=== PATIENT | female | born 2000 | race Caucasian/White ===

== ENCOUNTER 2020-04-26 05:50 | Day surgery (SDC) | payer OTHER, SELFPAY ==
[2020-04-22 13:51] LABS: HCG,QUAL RESULT NEGATIVE (NEGATIVE)
[~2020-04-26] VITALS: Ht 177.8 cm; Wt 160.6 kg
[2020-04-26 06:21] LABS: HCG,QUAL RESULT NEGATIVE (NEGATIVE)
[2020-04-26] MEDS ORDERED: NS 1000 ML IV.SOLN IV ONE (07:37)
[2020-04-26] MEDS ORDERED: fentaNYL CITRATE 250 MCG/5 ML AMP IV ONE (07:37)
[2020-04-26] MEDS ORDERED: NEOSTIGMINE METHYLSULFATE 1 MG/ML, 10 ML VIAL IVP ONE (07:37)
[2020-04-26] MEDS ORDERED: ROCURONIUM BROMIDE 10 MG/ML (ZEMURON) IV ONE (07:37)
[2020-04-26] MEDS ORDERED: METOCLOPRAMIDE HCL 10 MG/2 ML VIAL IVP ONE (07:37)
[2020-04-26] MEDS ORDERED: WATER FOR IRRIGATION,STERILE 1,000 ML IRRIG.SOLN IR ONE (07:37)
[2020-04-26] MEDS ORDERED: MIDAZOLAM HCL 5 MG/5 ML VIAL IVP ONE (07:37)
[2020-04-26] MEDS ORDERED: ONDANSETRON HCL 4 MG/2 ML VIAL IVP ONE (07:37)
[2020-04-26] MEDS ORDERED: LR 1,000 ML IV.SOLN IV ONE (07:37)
[2020-04-26] MEDS ORDERED: NS IRRIG SOLN 1000 ML IR ONE (07:37)
[2020-04-26] MEDS ORDERED: SEVOFLURANE 15 MIN GAS INH ONE (07:37)
[2020-04-26] MEDS ORDERED: GLYCOPYRROLATE 0.2 MG/ML VIAL IJ ONE (07:37)
[2020-04-26] MEDS ORDERED: LIDOCAINE 1% 10 MG/ML, 20 ML MDV INJ ONE (07:37)
[2020-04-26] MEDS ORDERED: PROPOFOL 200MG/ 20ML VIAL (DIPRIVAN) IV ONE (07:37)
[2020-04-26] MEDS ORDERED: METOCLOPRAMIDE HCL 10 MG/2 ML VIAL IVP PRN (10:30)
[2020-04-26] MEDS ORDERED: KETOROLAC TROMETHAMINE 30 MG VIAL IVP PRN ×3 (10:30)
[2020-04-26] MEDS ORDERED: HYDROmorphone 1 MG INJ. 1 MG/ML AMPUL IVP PRN ×2 (10:30)
[2020-04-26] MEDS ORDERED: ONDANSETRON HCL 4 MG/2 ML VIAL IVP PRN (10:30)
[2020-04-26] MEDS ORDERED: LR 1,000 ML IV SCH (10:30)
[2020-04-26 11:24] VITALS: BP_SYST 127
[2020-04-26] MEDS ORDERED: HYDROcodone/ACETAMIN 5-325 MG TAB (NORCO/ VICODIN) PO ONE (12:00)
[2020-04-26] MEDS ORDERED: HYDROcodone/ACETAMIN 5-325 MG TAB (NORCO/ VICODIN) ONE (12:14)
== END 2020-04-26 13:30 | disposition home or self-care (01) ==
LOC: SDS 05:50 → SMU 05:50 → SDS 13:30
PROVIDERS: ATTEND Otolaryngology
DX: D38.5 Neoplasm of uncertain behavior of other respiratory organs (principal); J34.2 Deviated nasal septum; H68.101 Unspecified obstruction of Eustachian tube, right ear; J30.1 Allergic rhinitis due to pollen; Z80.3 Family history of malignant neoplasm of breast; Z88.0 Allergy status to penicillin; K21.9 Gastro-esophageal reflux disease without esophagitis; E66.01 Morbid (severe) obesity due to excess calories; J34.3 Hypertrophy of nasal turbinates; J32.2 Chronic ethmoidal sinusitis; Z20.828 Contact with and (suspected) exposure to other viral communicable diseases; Z79.899 Other long term (current) drug therapy
CPT/HCPCS: 30140; 30520; 31255; 31256; 31287; 31296; 84703 ×2; 88305; 88311; C1726; J2001; J2250; J2405; J2704; J2710; J2765; J3010; J3490; J7030; J7120; U0003

== ENCOUNTER 2020-05-02 13:31 | Outpatient (CLI) | payer OTHER, SELFPAY | END 2020-05-03 15:06 | disposition home or self-care (01) | LOC: SLB 13:31 | PROVIDERS: ATTEND Otolaryngology | DX: Z20.828 Contact with and (suspected) exposure to other viral communicable diseases (principal) | CPT/HCPCS: 36415 ==